=== PATIENT | female | born 1990 | race Caucasian/White ===

== ENCOUNTER 2023-03-17 23:39 | Emergency (ER) | payer MEDICAID ==
[~2023-03-17] VITALS: Ht 160 cm; Wt 70.0 kg
[2023-03-17 23:55] VITALS: BP 131/86; PULSE 86; RESP 18; TEMP 98; O2SAT 100
[2023-03-18] MEDS ORDERED: DIPHENHYDRAMINE 50MG/ML VIAL IM ONE (02:15)
[2023-03-18] MEDS ORDERED: TC025C15 TP (02:31)
[2023-03-18] MEDS ORDERED: DIPH25CA83 PO (02:31)
[2023-03-18] MEDS ORDERED: MED4 MT (03:01)
== END 2023-03-18 03:25 | disposition home or self-care (01) ==
LOC: ER 23:39
DX: R21 Rash and other nonspecific skin eruption (principal)
CPT/HCPCS: 99283; 96372; J1200; Z7610